=== PATIENT | female | born 1985 | race Caucasian/White ===

== ENCOUNTER 2017-12-06 09:45 | Emergency (ER) | payer OTHER ==
[2017-12-06] MEDS: KETOROLAC 30 MG/ML VIAL (J1885) IV (11:01)
[2017-12-06] MEDS: GASTROGRAFIN SOLUTION 30ML (Q9963) PO ×4 (11:02→12:30)
[2017-12-06 11:04] LABS: BASO % 0.7 % (0.0-1.0); EOS # 0.3 10^3/uL (0.0-0.50); EOS % 4.5 % (0.0-3.0); HEMATOCRIT 43.1 % (36.0-47.0); HEMOGLOBIN 14.6 g/dl (12.0-16.0); IMMATURE GRANULOCYTE % 0.2 % (0-0); LYMPH # 1.7 10^3/uL (1.5-4.5); LYMPH % 28.6 % (24.0-44.0); MEAN CORPUSCULAR HEMOGLOBIN 29.1 pg (27.0-33.0); MEAN CORPUSCULAR HGB CONC 33.9 g/dl (32.0-36.5); MEAN CORPUSCULAR VOLUME 85.9 fl (80.0-96.0); MONO # 0.5 10^3/uL (0.0-0.8); MONO % 8.7 % (0.0-5.0); NEUTROPHILS # 3.4 10^3/uL (1.8-7.7); NEUTROPHILS % 57.3 % (36.0-66.0); PLATELET COUNT, AUTOMATED 300 10^3/uL (150-450); RED BLOOD COUNT 5.02 10^6/uL (4.00-5.40); RED CELL DISTRIBUTION WIDTH 12.7 % (11.5-14.5); WHITE BLOOD COUNT 5.8 10^3/uL (4.0-10.0)
[2017-12-06 11:11] LABS: APPEARANCE, URINE HAZY (CLEAR); BACTERIA, URINE AUTO 1+ (NEGATIVE); BILIRUBIN, URINE AUTO NEGATIVE (NEGATIVE); BLOOD, URINE BLOOD NEGATIVE (NEGATIVE); COLOR, URINE YELLOW (YELLOW); GLUCOSE, URINE (UA) AUTO NEGATIVE (NEGATIVE); KETONE, URINE AUTO NEGATIVE (NEGATIVE); LEUKOCYTE ESTERASE, URINE AUTO NEGATIVE (NEGATIVE); MUCUS, URINE SMALL (NEGATIVE); NITRITE, URINE AUTO NEGATIVE (NEGATIVE); PROTEIN, URINE AUTO NEGATIVE (NEGATIVE); RBC, URINE AUTO 2 /HPF (0-3); SPECIFIC GRAVITY URINE AUTO 1.018 (1.002-1.035); SQUAMOUS EPITHELIAL CELL UR AU 6 /HPF (0-6); WBC, URINE AUTO 1 /HPF (0-3)
[2017-12-06 11:37] LABS: LACTIC ACID SEPSIS PROTOCOL 1.2 MMOL/L (0.4-2.0)
[2017-12-06 11:37] LABS: ALBUMIN 4.4 GM/DL (3.2-5.2); ALBUMIN/GLOBULIN RATIO 1.07 (1.00-1.93); ALKALINE PHOSPHATASE 106 U/L (45-117); ALT/SGPT 31 U/L (12-78); ANION GAP 4 MEQ/L (8-16); AST/SGOT 12 U/L (7-37); BILIRUBIN,TOTAL 0.3 MG/DL (0.2-1.0); BLOOD UREA NITROGEN 5 MG/DL (7-18); C REACTIVE PROTEIN QUANTITATIV 1.08 MG/DL (0.00-0.30); CALCIUM LEVEL 9.2 MG/DL (8.5-10.1); CARBON DIOXIDE LEVEL 28 MEQ/L (21-32); CHLORIDE LEVEL 104 MEQ/L (98-107); CREATININE FOR GFR 0.77 MG/DL (0.55-1.30); GLOMERULAR FILTRATION RATE > 60.0 (>60); GLUCOSE, FASTING 85 MG/DL (70-100); LIPASE 141 U/L (73-393); POTASSIUM SERUM 3.5 MEQ/L (3.5-5.1); SODIUM LEVEL 136 MEQ/L (136-145); TOTAL PROTEIN 8.5 GM/DL (6.4-8.2)
[2017-12-06] MEDS ORDERED: GASTROGRAFIN SOLUTION 30ML (Q9963) PO (12:00)
[2017-12-06] MEDS ORDERED: ISOVUE-370 76% 100ML VIAL (Q9967) As Ordered (12:23)
[2017-12-06] MEDS: MORPHINE 4 MG/ML 1ML VIAL IV (12:59)
== END 2017-12-06 13:33 | disposition home or self-care (01) ==
LOC: M ED 09:45
DX: K59.00 Constipation, unspecified (principal); R14.0 Abdominal distension (gaseous); I10 Essential (primary) hypertension; E28.2 Polycystic ovarian syndrome; F17.200 Nicotine dependence, unspecified, uncomplicated
CPT/HCPCS: Q9963

== ENCOUNTER 2017-12-31 11:21 | Day surgery (SDC) | payer OTHER ==
[~2017-12-31 11:21] MED LIST: LIDOCAINE 1% MDV 20ML VIAL As Ordered; LIDOCAINE 2% INJ 100 MG/5 ML SDV (FOR ANES.) As Ordered; PROPOFOL 200 MG/20 ML VIAL As Ordered
[2017-12-31] MEDS ORDERED: PROPOFOL 200 MG/20 ML VIAL As Ordered (13:06)
== END 2017-12-31 13:44 | disposition home or self-care (01) ==
LOC: M SDC 13:44
DX: R10.33 Periumbilical pain (principal); R10.2 Pelvic and perineal pain; K59.00 Constipation, unspecified; J45.909 Unspecified asthma, uncomplicated; F32.9 Major depressive disorder, single episode, unspecified; E28.2 Polycystic ovarian syndrome; M17.0 Bilateral primary osteoarthritis of knee; M47.9 Spondylosis, unspecified; Z88.2 Allergy status to sulfonamides; Z91.013 Allergy to seafood; Z91.030 Bee allergy status; F17.210 Nicotine dependence, cigarettes, uncomplicated
CPT/HCPCS: 45378

== ENCOUNTER 2021-11-08 16:12 | Emergency (ER) | payer OTHER ==
[~2021-11-08 16:12] MED LIST changes: +ACET1TAB55 PO; +ALBU17IN INH; +CELE20TA PO; +COLA100C5 PO; +HYDR-3715 PO; -LIDOCAINE 1% MDV 20ML VIAL As Ordered; -LIDOCAINE 2% INJ 100 MG/5 ML SDV (FOR ANES.) As Ordered; +LISI5TAB PO; +MIRA33504 PO; +OMEP-358 PO; -PROPOFOL 200 MG/20 ML VIAL As Ordered; +ZOFR4TAB14 PO
[2021-11-08 16:29] VITALS: BP 141/83
[2021-11-08] MEDS ORDERED: ALBU8.5H (16:31)
== END 2021-11-08 17:13 | disposition left against medical advice (07) ==
LOC: M ED 16:12
DX: Z53.21 Procedure and treatment not carried out due to patient leaving prior to being seen by health care provider (principal)